=== PATIENT | female | born 1960 | race African-American/Black ===

== ENCOUNTER 2017-06-20 22:54 | Emergency (ER) | payer MEDICARE ==
[2017-06-20] MEDS: IPRATRPIUM/ALBUTEROL 0.5/2.5MG 3 ML NEBU. NEB (23:11)
== END 2017-06-21 00:24 | disposition home or self-care (01) ==
LOC: ER 06-21 00:24
DX: J40 Bronchitis, not specified as acute or chronic (principal); I10 Essential (primary) hypertension; F20.9 Schizophrenia, unspecified; F41.9 Anxiety disorder, unspecified
CPT/HCPCS: 71046; 94640; 99284-25; J7620

== ENCOUNTER 2020-02-05 09:48 | Emergency (ER) | payer MEDICARE, OTHER ==
[~2020-02-05] VITALS: Ht 157.5 cm; Wt 140.9 kg
[~2020-02-05 09:48] MED LIST: ACET-704 PO; ALBU1.25 NEB; ALBU2.5V8 IH; ARIP5TAB13 PO; ATEN25TA PO; AZIT250T PO; BUSP5TAB PO; DIVA500T2 PO
--- NOTE | 2020-02-05 09:57 | PHYS DOC ---
Past Medical History Past Medical History: Anxiety, Asthma, Bipolar, Cancer, Hypertension, [place] izophrenia Additional Past Medical Histor: schizophrenia, bipolar Past Surgical History: , Other Additional Past Surgical Histo: left breast tumor removal Smoking Status: Current Every Day Smoker Alcohol Use: Occasionally Drug Use: None General Adult EDM: Chief Complaint: SKIN RASH/ABSCESS HPI: HPI: Patient is a 60 year old female who presents with a 2 to 3-day history of throbbing 7 out of 10 pain in her left middle finger. Patient says she pulled a hangnail about 4 days ago and noticed pain a day or 2 later. Pain is significantly worse with palpation. Patient denies any fevers. Patient also has had a rash on her inner thighs but did not get relieved with cornstarch or Desitin, but has improved with some [id number] vaginal cream. Review of Systems: Review of Systems: Constitutional: Denies fever or chills. [] Eyes: Denies change in visual acuity. [] HENT: Denies nasal congestion or sore throat. [] Respiratory: Denies shortness of breath but has a chronic mild cough Cardiovascular: Denies chest pain or edema. [] GI: Denies abdominal pain, nausea, vomiting, bloody stools or diarrhea. [] : Denies dysuria. [] Musculoskeletal: Denies back pain or joint pain. [] Integument: Complains of rash to inner thighs Neurologic: Denies headache, focal weakness or sensory changes. [] Endocrine: Denies polyuria or polydipsia. [] Lymphatic: Denies swollen glands. [] Psychiatric: Denies depression or anxiety. [] Heart Score: Risk Factors: Risk Factors: DM, Current or recent (<one month) smoker, HTN, HLP, family history of CAD, obesity. Risk Scores: Score 0 - 3: 2.5% MACE over next 6 weeks - Discharge Home Score 4 - 6: 20.3% MACE over next 6 weeks - Admit for Clinical Observation Score 7 - 10: 72.7% MACE over next 6 weeks - Early Invasive Strategies Allergies: Allergies: Allergies Coded Allergies Type Severity Reaction Last Updated Verified iodine Allergy Intermediate loss of vision 08/27/14 No risperidone Allergy Mild rash 08/27/14 No Physical Exam: PE: Constitutional: Well developed, well nourished, no acute distress, non-toxic appearance. [] HENT: Normocephalic, atraumatic, bilateral external ears normal, no trismus, nose normal. [] Eyes: PERRLA, EOMI, conjunctiva normal, no discharge. [] Neck: Normal range of motion, no tenderness, supple, no stridor. [] Cardiovascular:Heart rate regular rhythm, peripheral pulses intact Lungs & Thorax: Bilateral breath sounds clear no respiratory distress Abdomen: Nondistended Skin: Healing rash to inner thighs (floral designer salesperson present), rash consistent with candidal infection. Mild erythema to the left middle finger Back: No tenderness, no CVA tenderness. [] Extremities: Tenderness and swelling to the left middle finger most probably on the radial side mild surrounding erythema, mild fluctuance to the radial side Neurologic: Alert and oriented X 3, normal motor function, normal sensory function, no focal deficits noted. [] Psychologic: Affect normal, judgement normal, mood normal. [] Current Patient Data: Vital Signs: Vital Signs Date Time Temp Pulse Resp B/P (MAP) Pulse Ox O2 Delivery O2 Flow Rate FiO2 02/05/20 09:59 98.4 116 22 169/105 (126) 95 Room Air 98.4 EKG: EKG: [] Radiology/Procedures: Radiology/Procedures: [] Course & Med Decision Making: Course & Med Decision Making Pertinent Labs and Imaging studies reviewed. (See chart for details) [] Procedure note: After informed consent was obtained a digital block with performed by me. The skin was prepped on the left third finger and alcohol prep. 27-gauge needle was used to inject 3 cc of 1% lidocaine via dorsal approach. Patient achieved good anesthesia. No complications. The fingernail was then prepped with an alcohol wipe. I tried to lift the nail but there is no purulent return. Then over the radial side of the finger around the area with the most fluctuance a stab incision was made and moderate amount of pus was expressed along with blood. Patient did wash the hand with soap and water and irrigated the wound. No complications. 6-year-old female presents with a paronychia which was drained in the ER. Patient feels much better after the pressures been relieved on her finger. Patient placed on antibiotics. The rash on her legs most likely candidal infection and she was instructed continue with the cream she is on. Dragon Disclaimer: Dragon Disclaimer: This electronic medical record was generated, in whole or in part, using a voice recognition dictation system. Departure Departure Impression: Primary Impression: Paronychia of left middle finger Disposition: 01 HOME, SELF-CARE Condition: STABLE Referrals: NO PCP (PCP) pcp 2-3 days Patient Instructions: Paronychia Additional Instructions: EMERGENCY DEPARTMENT GENERAL DISCHARGE INSTRUCTIONS THANK YOU for coming to [facility] Emergency Department (ED) today and trusting us with your care. We trust that you had a positive experience in our Emergency Department. If you wish to speak to the department Management you can contact the housekeeping department worker at . YOUR FOLLOW UP INSTRUCTIONS ARE FOLLOWS: Do you have a private doctor? If you do not have a private doctor, please ask for a resource list of physicians or clinics that may be able to assist you with follow up care. The Emergency Physician has interpreted your x-rays. The X-ray specialist will also review them. If there is a change in the findings you will be notified in 48 hours when at all possible. A lab test or lab culture may have been done, your results will be reviewed and you will be notified if you need a change in treatment. ADDITIONAL INSTRUCTIONS AND INFORMATION Your care today has been supervised by a physician who is specially trained in emergency care. Many problems require more than one evaluation for a complete diagnosis and treatment. We recommend that you schedule your follow up appointment as recommended to ensure complete treatment of your illness or injury. If you are unable to obtain follow up care and continue to have a problem, or if your condition worsens we recommend that you return to the ED. We are not able to safely determine your condition over the phone nor are we able to give sound medical advice over the phone. For these safety reasons, if you call for medical advice we will ask you to come to the ED for further evaluation If you have any questions regarding these discharge instructions please call the ED at . SAFETY INFORMATION In the interest of safety, wellness, and injury prevention; we encourage you to wear your seatbelt, if you smoke; quit smoking, and we encourage your family to use protective helmet for bicycling and other sporting events that present an increased risk for head injury. IF YOUR SYMPTOMS WORSEN OR NEW SYMPTOMS DEVELOP, OR YOU HAVE CONCERNS ABOUT YOUR CONDITION; OR IF YOUR CONDITION WORSENS WHILE YOU ARE WAITING FOR YOUR FOLLOW UP APPOINTMENT; EITHER CONTACT YOUR PRIMARY CARE DOCTOR, THE PHYSICIAN WHOSE NAME AND NUMBER YOU WERE GIVEN, OR RETURN TO THE ED IMMEDIATELY. Scripts Hydrocodone/Apap 5-325 (NORCO 5-325 TABLET) 1 Each Tablet 1-2 EACH PO PRN Q6HRS PRN for PAIN, #12 as needed for pain Prov: LURDES HEART MD 02/05/20 Sulfamethoxazole/Trimethoprim (BACTRIM 400-80 MG TABLET) 1 Each Tablet 1 TAB PO BID for 7 Days, #20 TAB 0 Refills Prov: LURDES HEART MD 02/05/20 Justicifation of Admission Dx: Justifications for Admission: Justification of Admission Dx: N/A LURDES HEART MD Feb 05, 2020 09:57
[2020-02-05] MEDS ORDERED: LIDOCAINE 1% Multi-Dose 20 ML VIAL. INJ ONE (10:30)
[2020-02-05] MEDS ORDERED: SULF1TAB23 PO (10:47)
[2020-02-05] MEDS ORDERED: HYDR-3164 PO (10:47)
[2020-02-05 11:10] VITALS: BP 157/100
== END 2020-02-05 11:16 | disposition home or self-care (01) ==
LOC: ER 09:48
DX: L03.012 Cellulitis of left finger (principal); R05 Cough; R21 Rash and other nonspecific skin eruption; F41.9 Anxiety disorder, unspecified; J45.909 Unspecified asthma, uncomplicated; F31.9 Bipolar disorder, unspecified; F20.9 Schizophrenia, unspecified; I10 Essential (primary) hypertension; F17.200 Nicotine dependence, unspecified, uncomplicated; Z98.890 Other specified postprocedural states
CPT/HCPCS: 10060; 99283; J3490

== ENCOUNTER 2020-02-13 13:40 | Emergency (ER) | payer MEDICARE, OTHER ==
[~2020-02-13] VITALS: Ht 157.5 cm; Wt 141.0 kg
[~2020-02-13 13:40] MED LIST changes: +HYDR-3164 PO; +SULF1TAB23 PO
[2020-02-13 14:00] VITALS: BP 196/89
[2020-02-13] MEDS ORDERED: LIDOCAINE 1% Multi-Dose 20 ML VIAL. INJ ONE (14:15)
[2020-02-13] MEDS ORDERED: BACI1PAC4 TP (14:32)
[2020-02-13] MEDS ORDERED: CEPH-264 PO (14:32)
--- NOTE | 2020-02-13 14:35 | PHYS DOC ---
Past Medical History Past Medical History: Anxiety, Asthma, Bipolar, Cancer, Hypertension, [place] izophrenia Additional Past Medical Histor: schizophrenia, bipolar Past Surgical History: , Other Additional Past Surgical Histo: left breast tumor removal Smoking Status: Former Smoker Alcohol Use: Occasionally Drug Use: None General Adult EDM: Chief Complaint: FINGER INJURY HPI: HPI: Patient is a 60 year old female who presents with right middle finger tip swelling since Friday. She states it is reddened and inflamed. She states she had the same thing on the other hand and it had to be opened and drained. Patient can make a full fist and bend at all finger joints. Patient's right middle finger has 2+ swelling and redness. There is tenderness with palpation to the finger. Cap refill less than 2 seconds. Radial pulse strong present. Patient denies numbness or tingling, fever, nausea, vomiting, body aches, chills, chest pain, shortness of air, focal weakness. Patient has a history of , anxiety, asthma, bipolar, cancer, schizophrenia, hypertension. Patient was seen here on February 04 for a left middle finger paronychia and was given Bactrim antibiotic for 7 days. She states that she has 4 pills left. Review of Systems: Review of Systems: Constitutional: Denies fever or chills. [] Eyes: Denies change in visual acuity. [] HENT: Denies nasal congestion or sore throat. [] Respiratory: Denies cough or shortness of breath. [] Cardiovascular: Denies chest pain. Right middle finger 2+ edema. [] GI: Denies abdominal pain, nausea, vomiting, bloody stools or diarrhea. [] : Denies dysuria. [] Musculoskeletal: Denies back pain or joint pain. Right middle finger[] Integument: Denies rash. Right middle finger redness [] Neurologic: Denies headache, focal weakness or sensory changes. [] Endocrine: Denies polyuria or polydipsia. [] Lymphatic: Denies swollen glands. [] Psychiatric: Denies depression or anxiety. [] Heart Score: Risk Factors: Risk Factors: DM, Current or recent (<one month) smoker, HTN, HLP, family history of CAD, obesity. Risk Scores: Score 0 - 3: 2.5% MACE over next 6 weeks - Discharge Home Score 4 - 6: 20.3% MACE over next 6 weeks - Admit for Clinical Observation Score 7 - 10: 72.7% MACE over next 6 weeks - Early Invasive Strategies Current Medications: Current Medications Medications (Trade) Dose Ordered Sig/[place] Start Time Stop Time Status Last Admin Dose Admin Lidocaine HCl (Lidocaine 1% 20ml Vial) 20 ml 1X ONCE 02/13/20 14:15 02/13/20 14:16 UNV Allergies: Allergies: Allergies Coded Allergies Type Severity Reaction Last Updated Verified iodine Allergy Intermediate loss of vision 08/27/14 No risperidone Allergy Intermediate rash 02/05/20 No Physical Exam: PE: Constitutional: Well developed, well nourished, no acute distress, non-toxic appearance. [] HENT: Normocephalic, atraumatic, bilateral external ears normal, oropharynx moist, no oral exudates, nose normal. [] Eyes: PERRLA, EOMI, conjunctiva normal, no discharge. [] Neck: Normal range of motion, no tenderness, supple, no stridor. [] Cardiovascular:Heart rate regular rhythm, no murmur [] Lungs & Thorax: Bilateral breath sounds clear to auscultation [] Abdomen: Bowel sounds normal, soft, no tenderness, no masses, no pulsatile masses. [] Skin: Warm, dry, Right middle finger erythema, no rash. [] Back: No tenderness, no CVA tenderness. [] Extremities: Right middle finger tenderness, no cyanosis, no clubbing, ROM intact, 2+ edema. [] Neurologic: Alert and oriented X 3, normal motor function, normal sensory function, no focal deficits noted. [] Psychologic: Affect normal, judgement normal, mood normal. [] Current Patient Data: Vital Signs: Vital Signs Date Time Temp Pulse Resp B/P (MAP) Pulse Ox O2 Delivery O2 Flow Rate FiO2 02/13/20 14:00 98.8 102 15 196/89 (124) 96 Room Air 98.8 EKG: EKG: [] Radiology/Procedures: Radiology/Procedures: [] Course & Med Decision Making: Course & Med Decision Making Pertinent Labs and Imaging studies reviewed. (See chart for details) See HPI. Patient is placed on Keflex for 10 days in stead of Bactrim. I also ordered bacitracin ointment to be placed over the area. Patient is to return in 48 hours or sooner if symptoms worsen. I&D Location: Right middle finger tip Anesthesia: 1% lidocaine Scalpel size: #11, 2mm cut made to medial finger tip Skin: Reddened, purulent drainage Drainage: Purulent Packing: None Patient tolerated the procedure well with no complications. The area was prepped and draped in usual sterile fashion. Area was cleaned with chloehexidine prior to procedure. Return for signs and symptoms of infection education given. Patient to return in 48 hours for wound recheck. [] Dragon Disclaimer: Dragon Disclaimer: This electronic medical record was generated, in whole or in part, using a voice recognition dictation system. Departure Departure Impression: Primary Impression: Paronychia of finger Qualified Codes: L03.011 - Cellulitis of right finger Disposition: HOME, SELF-CARE Condition: STABLE Referrals: GYPSY JAMES MD (PCP) Patient Instructions: Paronychia Additional Instructions: Follow up with your primary care physician. Take medication as prescribed and with food. If your symptoms worsen or you begin running a fever or have severe pain return back to the emergency room. Scripts Bacitracin (BACITRACIN) 1 Each Packet 1 PACKET TP BID for 14 Days, #28 PACKET 0 Refills Prov: JOSEPH GILMAN APRN 02/13/20 Cephalexin (KEFLEX) 500 Mg Capsule 500 MG PO QID for 10 Days, #40 CAP Prov: JOSEPH GILMAN APRN 02/13/20 Justicifation of Admission Dx: Justifications for Admission: Justification of Admission Dx: N/A JOSEPH GILMAN APRN Feb 13, 2020 14:35
== END 2020-02-13 15:10 | disposition home or self-care (01) ==
LOC: ER 13:40
DX: L03.011 Cellulitis of right finger (principal); R60.0 Localized edema; F41.9 Anxiety disorder, unspecified; J45.909 Unspecified asthma, uncomplicated; F31.9 Bipolar disorder, unspecified; I10 Essential (primary) hypertension; F20.9 Schizophrenia, unspecified; Z98.890 Other specified postprocedural states; Z87.891 Personal history of nicotine dependence
CPT/HCPCS: 10060; 99283

== ENCOUNTER 2021-05-18 11:30 | Emergency (ER) | payer MEDICARE, OTHER ==
[~2021-05-18] VITALS: Ht 167.6 cm; Wt 142.2 kg
[~2021-05-18 11:30] MED LIST changes: +BACI1PAC4 TP; +CEPH-264 PO
[2021-05-18] MEDS ORDERED: methylPREDNISolone SOD SUCC PF 125 MG/2 ML VIAL. IV ONE (13:15)
[2021-05-18] MEDS ORDERED: IPRATRPIUM/ALBUTEROL 0.5/2.5MG 3 ML NEBU. NEB ONE (13:15)
--- NOTE | 2021-05-18 13:25 | PHYS DOC ---
Past Medical History Past Medical History: Anxiety, Asthma, Bipolar, Cancer, Hypertension, [place] izophrenia Additional Past Medical Histor: schizophrenia, bipolar (KERWIN AVILA APRN) Past Surgical History: , Other Additional Past Surgical Histo: left breast tumor removal (KERWIN AVILA APRN) Smoking Status: Former Smoker Alcohol Use: Occasionally Drug Use: None (KERWIN AVILA APRN) General Adult EDM: Chief Complaint: MULTIPLE COMPLAINTS HPI: HPI: Patient is a 61-year-old female who presents to the emergency department for a nonproductive cough and shortness of breath that started 2 weeks ago. Patient reports that she has a history of asthma she takes inhalers and breathing treatments at home. She also has a history of hypertension and states that she has been taking her medications as directed but takes her blood pressure medication at night. Patient is also reporting a rash to her groin. Patient reports that she has a history of incontinence when she coughs and has developed a rash to her groin that is itchy. Patient denies any fevers, chest pain, sick exposures, nausea, vomiting, abdominal pain, dizziness, vaginal discharge, vaginal pain. (KERWIN AVILA APRN) Review of Systems: Review of Systems: 14 body systems of the review of systems have been reviewed. See HPI for pertinent positive and negative responses, otherwise all other systems are negative, nonpertinent or noncontributory (KERWIN AVILA APRN) Heart Score: C/O Chest Pain: No Risk Factors: Risk Factors: DM, Current or recent (<one month) smoker, HTN, HLP, family history of CAD, obesity. Risk Scores: Score 0 - 3: 2.5% MACE over next 6 weeks - Discharge Home Score 4 - 6: 20.3% MACE over next 6 weeks - Admit for Clinical Observation Score 7 - 10: 72.7% MACE over next 6 weeks - Early Invasive Strategies (KERWIN AVILA APRN) Current Medications: Current Medications Medications (Trade) Dose Ordered Sig/[place] Start Time Stop Time Status Last Admin Dose Admin Albuterol/ Ipratropium (Duoneb) 3 ml 1X ONCE 05/18/21 13:15 05/18/21 13:16 UNV Methylprednisolone Sodium Succinate (SOLU-Medrol 125MG VIAL) 125 mg 1X ONCE 05/18/21 13:15 05/18/21 13:16 UNV (KERWIN AVILA APRN) Allergies: Allergies: Allergies Coded Allergies Type Severity Reaction Last Updated Verified iodine Allergy Intermediate loss of vision 05/18/21 No risperidone Allergy Intermediate rash 05/18/21 No (KERWIN AVILA APRN) Physical Exam: PE: Constitutional: Well developed, well nourished, no acute distress, non-toxic appearance. [] HENT: Normocephalic, atraumatic, bilateral external ears normal, oropharynx moist, no oral exudates, nose normal. [] Eyes: PERRL, EOMI, conjunctiva normal, no discharge. [] Neck: Normal range of motion, no tenderness, supple, no stridor. [] Cardiovascular:Heart rate regular rhythm, no murmur [] Lungs & Thorax: Scattered wheezing noted throughout Abdomen: Bowel sounds normal, soft, no tenderness, no masses, obese, no pulsatile masses. [] Skin: Warm, dry, no erythema, no rash. [] Solderer Assembly Repair: patient has discolored rash with white thick draingae consisted with candidiasis in the folds of her groin and under her panus Back: Normal range of motion Extremities: No tenderness, no cyanosis, no clubbing, ROM intact, no edema. [] Neurologic: Alert and oriented X 3, normal motor function, normal sensory function, no focal deficits noted. [] Psychologic: Affect normal, judgement normal, mood normal. [] (KERWIN AVILA APRN) Current Patient Data: Labs: Laboratory Tests Test 05/18/21 14:15 05/18/21 14:40 05/18/21 15:05 White Blood Count 7.2 x10^3/uL Red Blood Count 4.16 x10^6/uL Hemoglobin 11.9 g/dL Hematocrit 36.1 % Mean Corpuscular Volume 87 fL Mean Corpuscular Hemoglobin 29 pg Mean Corpuscular Hemoglobin Concent 33 g/dL Red Cell Distribution Width 15.0 % Platelet Count 239 x10^3/uL Neutrophils (%) (Auto) 58 % Lymphocytes (%) (Auto) 33 % Monocytes (%) (Auto) 6 % Eosinophils (%) (Auto) 3 % Basophils (%) (Auto) 1 % Neutrophils # (Auto) 4.2 x10^3/uL Lymphocytes # (Auto) 2.3 x10^3/uL Monocytes # (Auto) 0.4 x10^3/uL Eosinophils # (Auto) 0.2 x10^3/uL Basophils # (Auto) 0.1 x10^3/uL Influenza Type A Antigen Negative Influenza Type B Antigen Negative Sodium Level 139 mmol/L Potassium Level 4.2 mmol/L Chloride Level 101 mmol/L Carbon Dioxide Level 29 mmol/L Anion Gap 9 Blood Urea Nitrogen 10 mg/dL Creatinine 0.9 mg/dL Estimated GFR (Cockcroft-Gault) 77.0 BUN/Creatinine Ratio 11 Glucose Level 300 mg/dL Calcium Level 8.8 mg/dL Total Bilirubin 0.3 mg/dL Aspartate Amino Transf (AST/SGOT) 18 U/L Alanine Aminotransferase (ALT/SGPT) 26 U/L Alkaline Phosphatase 105 U/L Troponin I High Sensitivity 6 ng/L Total Protein 6.7 g/dL Albumin 3.2 g/dL Albumin/Globulin Ratio 0.9 Current Medications Medications (Trade) Dose Ordered Sig/[place] Route PRN Reason Start Time Stop Time Status Last Admin Dose Admin Albuterol/ Ipratropium (Duoneb) 3 ml 1X ONCE NEB 05/18/21 13:15 05/18/21 13:21 DC 05/18/21 13:24 Methylprednisolone Sodium Succinate (SOLU-Medrol 125MG VIAL) 125 mg 1X ONCE IV 05/18/21 13:15 05/18/21 13:21 DC 05/18/21 14:26 (EKRWIN AVILA TAPPER HAND) EKG: EKG: EKG performed by ER staff at 1326 shows sinus rhythm with a rate of 94, no STEMI read by Dr. Paez at 1328 [] (KERWIN AVILA TAPPER HAND) Radiology/Procedures: Radiology/Procedures: []PROCEDURE: PORTABLE CHEST 1V EXAMINATION: Chest radiograph. VIEWS: Single AP view of the chest COMPARISON: 06/20/2017 INDICATION:61 years, Female, shortness of breath, cough. FINDINGS: Lungs are hypoinflated. Cardiac silhouette is within normal limits. [And bibasilar opacities, left greater than right. No pleural effusion or pneumothorax. No acute osseous process. IMPRESSION: Poor inspiratory effort with left mid and bibasilar opacities may represent atelectasis or multifocal infection Electronically signed by: Faustina Dudley DO (05/18/2021 1:55 PM) [id number] DICTATED and SIGNED BY: FAUSTINA DUDLEY DATE: 05/18/21 [id number] (KERWIN AVILA APRN) Course & Med Decision Making: Course & Med Decision Making Pertinent Labs and Imaging studies reviewed. (See chart for details) Patient presents to the emergency department for a nonproductive cough and shortness of breath that started 2 weeks ago. Patient has a history of asthma. Patient was not hypoxic although she was tachycardic and mildly hypertensive in the ER. Patient was noted to have wheezing throughout and therefore was treated with a breathing treatment and steroids. Work-up in the ER consisted of blood work, chest x-ray and EKG. Patient is also reporting a itchy rash to her groin. Upon physical assessment, it appears that patient is having a candidiasis rash. She will be discharged home with an antifungal cream. Patient CBC is unremarkable, negative influenza testing, no elevated troponin, patient CMP was unremarkable her blood sugar was 300. She was given IV fluids. Her vital signs remained stable and she is not hypoxic, heart rate wnl. Following the breathing treatment, patient reports that her symptoms have improved and her wheezing has improved. Patient will be discharged home with an antibiotic to treat the pneumonia that was seen on the chest x-ray, given first dose in the ER. She was also discharged home with steroids for asthma exacerbation. She will be discharged home with an antifungal cream to treat the candidiasis. I discussed with patient all findings and diagnostic testing as well as the need to follow-up with PCP for further evaluation and treatment or return to the ER if any new or worsening symptoms. Strict return precautions we re also discussed at length. Patient voiced understanding and agreement with the plan. Patient is hemodynamically stable at the time of disposition. (KERWIN AVILA APRN) Course & Med Decision Making Attending addendum: I reviewed the chart as above. I was not involved in the patient's care while in the emergency department. In addition to the above I sent a prescription for Augmentin given her pre- existing lung disease. So she will take Augmentin and azithromycin. I left a message on her phone asking her to picket labor union both prescriptions at the pharmacy. (KATHY PAEZ MD) Dragon Disclaimer: Dragon Disclaimer: This electronic medical record was generated, in whole or in part, using a voice recognition dictation system. (KERWIN AVILA APRN) Departure Departure Impression: Primary Impression: Pneumonia Qualified Codes: J18.9 - Pneumonia, unspecified organism Disposition: HOME / SELF CARE / HOMELESS Condition: GOOD Referrals: GYPSY JAMES MD (PCP) Patient Instructions: Pneumonia, Adult Additional Instructions: You were seen in the emergency department today for shortness of breath and a cough. Your influenza test was negative. Your blood work was unremarkable. Your chest x-ray did show pneumonia. This will be treated with an antibiotic. Please start and finish the antibiotic completely. You were tested in the emergency department today for COVID-19, you will be notified of your results in approximately 2 days when it becomes available, please self isolate until you receive these results. Please continue taking your inhalers and breathing treatments at home for your asthma. For the rash to your groin, please use the nystatin powder as directed. You are also being discharged home with a steroid, use this as directed. Please follow-up with your primary care provider tomorrow regarding your ER visit. Please make sure that you are taking your medications as directed at home for hypertension. Please return to the emergency department if you develop worsening of your shortness of breath, chest pain, high fevers refractory to treatment, intractable nausea or vomiting. Scripts Amoxicillin/Potassium Clav (AUGMENTIN 875-125 TABLET) 1 Each Tablet 1 TAB PO BID for 7 Days, #14 TAB 0 Refills Prov: KATHY PAEZ MD 05/18/21 Prednisone (PREDNISONE) 20 Mg Tablet 2 TAB PO DAILY for 5 Days, #10 TAB 0 Refills Prov: KERWIN AVILA APRN 05/18/21 Azithromycin (AZITHROMYCIN TABLET) 250 Mg Tablet 250 MG PO DAILY for ANTI-BIOTIC for 4 Days, #4 TAB 0 Refills Prov: KERWIN AVILA APRN 05/18/21 Nystatin (NYSTATIN) 15 Gm Powder 1 DEZ TP BID for 7 Days, #1 BOTTLE 0 Refills apply to affected area(s) Prov: KERWIN AVILA APRN 05/18/21 KERWIN AVILA APRN May 18, 2021 13:25 KATHY PAEZ MD May 18, 2021 18:00
--- NOTE | 2021-05-18 13:57 | RAD ---
EXAMINATION: Chest radiograph. VIEWS: Single AP view of the chest COMPARISON: 06/20/2017 INDICATION:61 years, Female, shortness of breath, cough. FINDINGS: Lungs are hypoinflated. Cardiac silhouette is within normal limits. [And bibasilar opacities, left gr eater than right. No pleural effusion or pneumothorax. No acute osseous process. IMPRESSION: Poor inspiratory effort with left mid and bibasilar opacities may represent atelectasis or multifocal infection Electronically signed by: Shaun Dudley DO (05/18/2021 1:55 PM) [id number]
[2021-05-18 14:47] LABS: BASO # 0.1 x10^3/uL (0.0-0.2); BASO % 1 % (0-3); EOS # 0.2 x10^3/uL (0.0-0.7); EOS % 3 % (0-3); HEMATOCRIT 36.1 % (36.0-47.0); HEMOGLOBIN 11.9 g/dL (12.0-15.5); LYMPH # 2.3 x10^3/uL (1.0-4.8); LYMPH % 33 % (24-48); MEAN CORPUSCULAR HEMOGLOBIN 29 pg (25-35); MEAN CORPUSCULAR HGB CONC 33 g/dL (31-37); MEAN CORPUSCULAR VOLUME 87 fL (79-100); MONO # 0.4 x10^3/uL (0.0-1.1); MONO % 6 % (0-9); NEUT # 4.2 x10^3/uL (1.8-7.7); NEUT % 58 % (31-73); PLATELET COUNT 239 x10^3/uL (140-400); RED BLOOD COUNT 4.16 x10^6/uL (3.50-5.40); WHITE BLOOD COUNT 7.2 x10^3/uL (4.0-11.0)
[2021-05-18 15:06] LABS: INFLUENZA A PATIENT NEGATIVE (NEGATIVE); INFLUENZA B PATIENT NEGATIVE (NEGATIVE)
[2021-05-18 15:37] LABS: ALBUMIN 3.2 g/dL (3.4-5.0); ALBUMIN/GLOBULIN RATIO 0.9 (1.0-1.7); CALCIUM 8.8 mg/dL (8.5-10.1); CREATININE 0.9 mg/dL (0.6-1.0); POTASSIUM 4.2 mmol/L (3.5-5.1); TOTAL BILIRUBIN 0.3 mg/dL (0.2-1.0); TOTAL PROTEIN 6.7 g/dL (6.4-8.2)
[2021-05-18] MEDS ORDERED: AZITHROMYCIN 250 MG TABLET. PO ONE (15:45)
[2021-05-18] MEDS ORDERED: IV NORMAL SALINE 1000ML BAG 1,000 ML IV ONE (15:45)
[2021-05-18] MEDS ORDERED: NYST15PO9 TP (15:58)
[2021-05-18] MEDS ORDERED: AZIT250T6 PO (15:58)
[2021-05-18] MEDS ORDERED: PRED20TA PO (15:58)
[2021-05-18 17:09] VITALS: BP 171/82
[2021-05-18] MEDS ORDERED: AMOX1TAB61 PO (18:00)
--- NOTE | 2021-05-19 04:22 | EKG ---
[facility] [address] [place] [address] Test Date: 2021-05-18 Test Time: 13:26:01 Pat Name: CARLTON MCGUIRE Department: Room: Gender: F Funeral Location Manager: : 1960 Requested By: KERWIN AVILA Order Number: [id number] Reading MD: Jose Wen MD Measurements Intervals [place] Rate: 94 P: -62 DE: 144 QRS: -1 QRSD: 72 T: 42 QT: 400 QTc: 500 Interpretive Statements SINUS RHYTHM NON-SPECIFIC ST/T CHANGES Electronically Signed On 05-20-2021 20:46:09 SUPERVISORY INVESTIGATIVE SPECIALIST by Jose Wen MD
--- NOTE | 2021-05-21 13:18 | NUR ---
IP: Informed pt of negative covid test. Pt verbalized understanding.
== END 2021-05-18 17:12 | disposition home or self-care (01) ==
LOC: ER 11:30
DX: J18.9 Pneumonia, unspecified organism (principal); Z20.822 Contact with and (suspected) exposure to COVID-19; J45.909 Unspecified asthma, uncomplicated; F31.9 Bipolar disorder, unspecified; I10 Essential (primary) hypertension; F20.9 Schizophrenia, unspecified; Z87.891 Personal history of nicotine dependence; Z88.8 Allergy status to other drugs, medicaments and biological substances
CPT/HCPCS: 36415; 71045; 80053; 84484; 85025; 87804; 93005; 94640; 96361; 96374; 99284; J2930; J7030; U0003; U0005

== ENCOUNTER → 2021-07-01 22:28 | Emergency (ER) | payer MEDICARE, OTHER ==
[~2021-07-01] VITALS: Ht 157.5 cm; Wt 137.7 kg
[~2021-07-01 22:28] MED LIST changes: +AMOX1TAB61 PO; +AZIT250T6 PO; +IBUPROFEN 200 MG TABLET. PO ONE; +NYST15PO9 TP; +PRED20TA PO
--- NOTE | 2021-07-01 23:15 | PHYS DOC ---
Past Medical History Past Medical History: Anxiety, Asthma, Bipolar, Cancer, Hypertension, [place] izophrenia Additional Past Medical Histor: schizophrenia, bipolar (HÉCTOR PORTILLO PASTOR) Past Surgical History: No Surgical History Additional Past Surgical Histo: left breast tumor removal (HÉCTOR PORTILLO APRN) Smoking Status: Current Every Day Smoker Alcohol Use: Occasionally Drug Use: None (HÉCTOR PORTILLO APRN) General Adult EDM: Chief Complaint: MECHANICAL FALL HPI: HPI: Patient is a 61-year-old female that presents today after a fall on Friday. Patient states she was walking at [facility] at around 8:30 in the evening and she said she did not see a bench and she fell forward over the bench landing on her face. She denies a loss of consciousness, but does complain of bilateral knee pain, left lumbar pain, right rib pain, and right sided neck pain. Patient states she was unable to get here until today due to transportation issues. She said she took Tylenol yesterday for the pain but otherwise has not taken anything today. (HÉCTOR PORTILLO PASTOR) Review of Systems: Review of Systems: Constitutional: Denies fever or chills. [] Eyes: Denies change in visual acuity. [] HENT: Denies nasal congestion or sore throat. [] Respiratory: Denies cough or shortness of breath. [] Cardiovascular: Denies chest pain or edema. [] GI: Denies abdominal pain, nausea, vomiting, bloody stools or diarrhea. [] : Denies dysuria. [] Musculoskeletal: Bilateral knee pain, right lumbar pain, left rib pain and right-sided neck pain Integument: Denies rash. [] Neurologic: Denies headache, focal weakness or sensory changes. [] Endocrine: Denies polyuria or polydipsia. [] Lymphatic: Denies swollen glands. [] Psychiatric: Denies depression or anxiety. [] (HÉCTOR PORTILLO PASTOR) Heart Score: C/O Chest Pain: N/A Risk Factors: Risk Factors: DM, Current or recent (<one month) smoker, HTN, HLP, family history of CAD, obesity. Risk Scores: Score 0 - 3: 2.5% MACE over next 6 weeks - Discharge Home Score 4 - 6: 20.3% MACE over next 6 weeks - Admit for Clinical Observation Score 7 - 10: 72.7% MACE over next 6 weeks - Early Invasive Strategies (HÉCTOR PORTILLO APRN) Allergies: Allergies: Allergies Coded Allergies Type Severity Reaction Last Updated Verified iodine Allergy Intermediate loss of vision 05/18/21 No risperidone Allergy Intermediate rash 05/18/21 No (HÉCTOR PORTILLO APRN) Physical Exam: PE: Constitutional: Well developed, obese, no acute distress, non-toxic appearance. [] HENT: Normocephalic, atraumatic, bilateral external ears normal, oropharynx moist, no oral exudates, nose normal. [] Eyes: PERRLA, EOMI, conjunctiva normal, no discharge. [] Neck: Normal range of motion, right-sided neck tenderness with deep palpation, no midline tenderness noted] Cardiovascular:Heart rate regular rhythm, no murmur [] Lungs & Thorax: Bilateral breath sounds clear to auscultation, tenderness and okay to on the mid axilla line with deep palpation no ecchymosis, or contusion noted. Abdomen: Bowel sounds normal, soft, no tenderness, no masses, no pulsatile masses. [] Skin: Warm, dry, no erythema, no rash. [] Back: Tenderness with deep palpation noted over the right SI joint, mostly musculoskeletal patient has good range of motion of the right hip. Extremities: Bilateral knee pain over the kneecap area, no contusions, lacerations, abrasions, or ecchymosis noted. Patient has normal range of motion but is painful, dorsalis pedis is 2+ with neurovascular intact distal to the injury bilaterally Neurologic: Alert and oriented X 3, normal motor function, normal sensory function, no focal deficits noted. [] Psychologic: Affect normal, judgement normal, mood normal. [] (HÉCTOR PORTILLO APRN) Current Patient Data: Vital Signs: Vital Signs Date Time Temp Pulse Resp B/P (MAP) Pulse Ox O2 Delivery O2 Flow Rate FiO2 07/01/21 23:00 98.2 111 17 175/79 (111) 97 Room Air 98.2 (HÉCTOR PORTILLO APRN) EKG: EKG: [] (HÉCTOR PORTILLO APRN) Radiology/Procedures: Radiology/Procedures: REASON: fall PROCEDURE: CT HEAD AND CERVICAL SPINE WO CT HEAD AND C-SPINE WO dated 07/01/2021 11:25 PM. Comparison: None. Clinical Indication: Reason: fall / Spl. Instructions: / History: , HEAD AND NECK PAIN Technical factors: Contiguous 5 mm axial images of the head were obtained from the skullbase to the vertex. No contrast was administered. In addition, 3 mm axial images of the cervical spine were acquired with thin cut coronal and sagittal reconstructions. One or more of the following individualized dose reduction techniques were utilized for this examination: 1. Automated exposure control 2. Adjustment of the mA and/or kV according to patient size 3. Use of iterative reconstruction technique Findings head: Ventricles and sulci are within normal limits for age. No evidence of ventricular shift or mass effect. Brain parenchyma is of normal attenuation. There is no evidence of hemorrhage or extra-axial collection. Visualized paranasal sinuses and mastoid air cells are clear. No acute osseous abnormality. IMPRESSION HEAD: No evidence of acute intracranial abnormality. Findings cervical spine: Images were acquired from the skull base to T3. There is straightening of the normal cervical lordosis, otherwise sagittal alignment is anatomic. Vertebral body heights are maintained. No prevertebral soft tissue swelling. Posterior elements are intact. No fractures are identified. Mild to moderate endplate hypertrophic changes with multilevel uncovertebral spurring and mild multilevel facet arthropathy. No apparent focal disc herniation. The bony canal and foramen are adequate. Visualized soft tissue structures are unremarkable. Limited images of lung apices are clear. Mild emphysema. IMPRESSION CERVICAL SPINE: 1. No evidence of fracture or malalignment. 2. Mild multilevel spondylosis. Electronically signed by: Estevan Marinelli MD (07/02/2021 12:13 AM) EDILMA REASON: fall PROCEDURE: CT LUMBAR SPINE WO CONTRAST CT lumbar spine without contrast dated 07/02/2021. COMPARISON: None. CLINICAL INDICATION: Pain after fall. TECHNIQUE: Contiguous axial imaging of the lumbar spine performed with thin cut coronal and sagittal reconstruction. One or more of the following individualized dose reduction techniques were utilized for this examination: 1. Automated exposure control 2. Adjustment of the mA and/or kV according to patient size 3. Use of iterative reconstruction technique FINDINGS: Sagittal alignment is anatomic. Vertebral body heights are maintained. No displaced fracture. There is a unilateral pars defect at L5 right with small linear defect through the spinous process and left lamina that appears well- corticated, likely remote. There is also some fragmentation along the posterior margin left facet joint at this level. No apparent focal disc herniation. There is mild broad-based bulging at L4-L5 with mild disc space narrowing. This results in mild central stenosis with moderate bilateral foraminal stenosis. There is moderate disc space narrowing and vacuum disc phenomenon at L5-S1 with mild broad-based bulge. Moderate bi lateral foraminal stenosis with moderate narrowing of the thecal sac. Images of the retroperitoneum show no significant abnormality. IMPRESSION: 1. No evidence of acute fracture or malalignment. 2. Unilateral pars defect at L5 on the right with small linear defect through the left lamina/spinous process that appears to be remote in age. No significant listhesis at this level. 3. Mild to moderate lower lumbar spondylosis. There is mild central stenosis at L4-L5 and L5-S1 with moderate bilateral foraminal narrowing at these levels. Electronically signed by: Estevan Marinelli MD (07/02/2021 12:22 AM) [facility]: fall PROCEDURE: CT MAXILLOFACIAL WO CONTRAST CT maxillofacial without contrast dated 07/02/2021. COMPARISON: None. CLINICAL INDICATION: Pain after fall. TECHNIQUE: Contiguous axial imaging the maxillary facial bones obtained with thin cut coronal and sagittal MIPS reconstructions. One or more of the following individualized dose reduction techniques were utilized for this examination: 1. Automated exposure control 2. Adjustment of the mA and/or kV according to patient size 3. Use of iterative reconstruction technique FINDINGS: Mild mucosal thickening of the ethmoid air cells. Paranasal sinuses and mastoid air cells are otherwise clear. Middle ears are clear. No destructive changes or periostitis. Orbital aviles and maxillary aviles are intact. No displaced facial fracture. Zygomatic arches are intact. Nasal bones are intact. No evidence of mandible fracture. Imaged portions of the brain parenchyma unremarkable. No significant soft tissue abnormality. IMPRESSION: 1. No evidence of displaced facial fracture. 2. Minimal mucosal thickening of the bilateral ethmoid air cells. Electronically signed by: Estevan Marinelli MD (07/02/2021 12:25 AM) [facility] (HÉCTOR PORTILLO APRN) Impression: [facility] [address] [place] [address] IMAGING REPORT Signed PATIENT: CARLTON MCGUIRE LACCOUNT: [id number] : 1960 LOCATION: ER AGE: 61 SEX: F EXAM STATUS: DEP ER ORD. PHYSICIAN: HÉCTOR PORTILLO APRN REASON: fall PROCEDURE: HIP RIGHT 2V WITH PELVIS Single view pelvis and two-view right hip dated 07/02/2021. COMPARISON: None. CLINICAL INDICATION: Pain after fall. FINDINGS: AP view pelvis shows normal bony alignment. No displaced fracture. Pelvic ring is intact. No acute osseous or articular abnormality. 2 views right hip show normal bony alignment. No displaced fracture. No acute osseous or articular abnormality. IMPRESSION: No acute findings. Electronically signed by: Estevan Marinelli MD (07/02/2021 2:52 AM) [facility] DICTATED and SIGNED BY: ESTEVAN MARINELLI MD DATE: 07/02/21 [id number] [facility] [address] [place] [address] IMAGING REPORT Signed PATIENT: CARLTON MCGUIRE LACCOUNT: [id number] : 1960 LOCATION: ER AGE: 61 SEX: F EXAM STATUS: DEP ER ORD. PHYSICIAN: HÉCTOR PORTILLO APRN REASON: fall and knee pain PROCEDURE: KNEE BILAT 4V 4 view bilateral knee dated 07/02/2021. COMPARISON: None. Clinical data indication: Pain after fall. FINDINGS: 4 views of right knee show normal bony alignment. No displaced fracture. Mild tricompartmental hypertrophic change with small marginal osteophytes. There is asymmetric medial joint space narrowing. No apparent joint effusion. There are small loose bodies at the posterior joint space. 4 views of the left knee show normal bony alignment. No displaced fracture. Moderate tricompartmental hypertrophic changes with multiple intra-articular loose bodies. No apparent joint effusion. IMPRESSION: 1. No acute radiographic abnormality. 2. Moderate bilateral tricompartmental DJD with multiple intra-articular loose bodies, left greater than right. Electronically signed by: Estevan Marinelli MD (07/02/2021 2:54 AM) [facility] DICTATED and SIGNED BY: ESTEVAN MARINELLI MD DATE: 07/02/21 [id number] [facility] [address] [place] [address] IMAGING REPORT Signed PATIENT: CARLTON MCGUIRE LACCOUNT: [id number] : 1960 LOCATION: ER AGE: 61 SEX: F EXAM STATUS: DEP ER ORD. PHYSICIAN: HÉCTOR PORTILLO APRN REASON: fall and knee pain PROCEDURE: CHEST PA & LATERAL Two-view chest dated 07/02/2021 2:54 AM Comparison: 06/20/2017 CLINICAL INDICATION: Pain after injury FINDINGS: PA and lateral views obtained. Heart and mediastinal contours are stable. There is some prominent linear markings at the perihilar regions, unchanged. No consolidation or pleural effusion. No pneumothorax. IMPRESSION: No acute radiographic abnormality. Stable findings compared to 06/20/2017. Electronically signed by: Estevan Marinelli MD (07/02/2021 2:55 AM) [facility] DICTATED and SIGNED BY: ESTEVAN MARINELLI MD DATE: 07/02/21 [id number] (KATHY PAEZ MD) Course & Med Decision Making: Course & Med Decision Making Pertinent Labs and Imaging studies reviewed. (See chart for details: 0105: sign out to Dr paez, awaiting xrays to be done, patient HR 96 per pulse ox. (HÉCTOR PORTILLO APRN) Course & Med Decision Making Signed out to hi pending x-ray films. Patient suffered a mechanical fall and was complaining of knee pain and hip pain. Plain films did not show any acute injuries. Patient will be discharged with conservative treatment (KATHY PAEZ MD) Scott Disclaimer: Scott Disclaimer: This electronic medical record was generated, in whole or in part, using a voice recognition dictation system. (HÉCTOR PORTILLO APRN) Departure Departure Impression: Primary Impression: Knee pain Additional Impressions: Hip pain Fall Disposition: 02 SHORT TERM HOSPITAL Condition: STABLE Referrals: GYPSY JAMES MD (PCP) Additional Instructions: Your x-rays and CT scans did not show any injuries to your bones. Your pain is likely due to soft tissue injuries and potentially some arthritis. For pain tylenol and ibuprofen are best used on a schedule. Please alternate between the two. -Tylenol 1000 mg every 6 hours (do not exceed 4000 mg in one day) -Ibuprofen 400 mg every 6 hours. Take with food. Do not take for more than 1 week. HÉCTOR PORTILLO APRN Jul 01, 2021 23:15 KATHY PAEZ MD Jul 02, 2021 05:05
--- NOTE | 2021-07-02 00:15 | RAD ---
CT HEAD AND C-SPINE WO dated 07/01/2021 11:25 PM. Comparison: None. Clinical Indication: Reason: fall / Spl. Instructions: / History: , HEAD AND NECK PAIN Technical factors: Contiguous 5 mm axial images of the head were obtained from the skullbase to the v ertex. No contrast was administered. In addition, 3 mm axial images of the cervical spine were acquir ed with thin cut coronal and sagittal reconstructions. One or more of the following individualized dose reduction techniques were utilized for this examinat ion: 1. Automated exposure control 2. Adjustment of the mA and/or kV according to patient size 3. Use of iterative reconstruction technique Findings head: Ventricles and sulci are within normal limits for age. No evidence of ventricular shift or mass effec t. Brain parenchyma is of normal attenuation. There is no evidence of hemorrhage or extra-axial colle ction. Visualized paranasal sinuses and mastoid air cells are clear. No acute osseous abnormality. IMPRESSION HEAD: No evidence of acute intracranial abnormality. Findings cervical spine: Images were acquired from the skull base to T3. There is straightening of the normal cervical lordosi s, otherwise sagittal alignment is anatomic. Vertebral body heights are maintained. No prevertebral s oft tissue swelling. Posterior elements are intact. No fractures are identified. Mild to moderate endplate hypertrophic changes with multilevel uncovertebral spurring and mild multil evel facet arthropathy. No apparent focal disc herniation. The bony canal and foramen are adequate. Visualized soft tissue structures are unremarkable. Limited images of lung apices are clear. Mild emp hysema. IMPRESSION CERVICAL SPINE: 1. No evidence of fracture or malalignment. 2. Mild multilevel spondylosis. Electronically signed by: Estevan Marinelli MD (07/02/2021 12:13 AM) NIKOLAI
--- NOTE | 2021-07-02 00:25 | RAD ---
CT lumbar spine without contrast dated 07/02/2021. COMPARISON: None. CLINICAL INDICATION: Pain after fall. TECHNIQUE: Contiguous axial imaging of the lumbar spine performed with thin cut coronal and sagittal reconstruct ion. One or more of the following individualized dose reduction techniques were utilized for this examinat ion: 1. Automated exposure control 2. Adjustment of the mA and/or kV according to patient size 3. Use of iterative reconstruction technique FINDINGS: Sagittal alignment is anatomic. Vertebral body heights are maintained. No displaced fracture. There i s a unilateral pars defect at L5 right with small linear defect through the spinous process and left lamina that appears well-corticated, likely remote. There is also some fragmentation along the liability analyst ior margin left facet joint at this level. No apparent focal disc herniation. There is mild broad-based bulging at L4-L5 with mild disc space na rrowing. This results in mild central stenosis with moderate bilateral foraminal stenosis. There is m oderate disc space narrowing and vacuum disc phenomenon at L5-S1 with mild broad-based bulge. Moderat e bilateral foraminal stenosis with moderate narrowing of the thecal sac. Images of the retroperitoneum show no significant abnormality. IMPRESSION: 1. No evidence of acute fracture or malalignment. 2. Unilateral pars defect at L5 on the right with small linear defect through the left lamina/spinous process that appears to be remote in age. No significant listhesis at this level. 3. Mild to moderate lower lumbar spondylosis. There is mild central stenosis at L4-L5 and L5-S1 with moderate bilateral foraminal narrowing at these levels. Electronically signed by: Estevan Marinelli MD (07/02/2021 12:22 AM) EDILMA
--- NOTE | 2021-07-02 00:27 | RAD ---
CT maxillofacial without contrast dated 07/02/2021. COMPARISON: None. CLINICAL INDICATION: Pain after fall. TECHNIQUE: Contiguous axial imaging the maxillary facial bones obtained with thin cut coronal and sagittal MIPS reconstructions. One or more of the following individualized dose reduction techniques were utilized for this examinat ion: 1. Automated exposure control 2. Adjustment of the mA and/or kV according to patient size 3. Use of iterative reconstruction technique FINDINGS: Mild mucosal thickening of the ethmoid air cells. Paranasal sinuses and mastoid air cells are otherwi se clear. Middle ears are clear. No destructive changes or periostitis. Orbital aviles and maxillary aviles are intact. No displaced facial fracture. Zygomatic arches are inta ct. Nasal bones are intact. No evidence of mandible fracture. Imaged portions of the brain parenchyma unremarkable. No significant soft tissue abnormality. IMPRESSION: 1. No evidence of displaced facial fracture. 2. Minimal mucosal thickening of the bilateral ethmoid air cells. Electronically signed by: Estevan Marinelli MD (07/02/2021 12:25 AM) EDILMA
[2021-07-02 00:51] VITALS: BP 160/72
--- NOTE | 2021-07-02 02:55 | RAD ---
Single view pelvis and two-view right hip dated 07/02/2021. COMPARISON: None. CLINICAL INDICATION: Pain after fall. FINDINGS: AP view pelvis shows normal bony alignment. No displaced fracture. Pelvic ring is intact. No acute os seous or articular abnormality. 2 views right hip show normal bony alignment. No displaced fracture. No acute osseous or articular ab normality. IMPRESSION: No acute findings. Electronically signed by: Estevan Marinelli MD (07/02/2021 2:52 AM) EDIL[facility]
--- NOTE | 2021-07-02 02:56 | RAD ---
4 view bilateral knee dated 07/02/2021. COMPARISON: None. Clinical data indication: Pain after fall. FINDINGS: 4 views of right knee show normal bony alignment. No displaced fracture. Mild tricompartmental hypert rophic change with small marginal osteophytes. There is asymmetric medial joint space narrowing. No a pparent joint effusion. There are small loose bodies at the posterior joint space. 4 views of the left knee show normal bony alignment. No displaced fracture. Moderate tricompartmental hypertrophic changes with multiple intra-articular loose bodies. No apparent joint effusion. IMPRESSION: 1. No acute radiographic abnormality. 2. Moderate bilateral tricompartmental DJD with multiple intra-articular loose bodies, left greater t hutton right. Electronically signed by: Estevan Marinelli MD (07/02/2021 2:54 AM) EDILMA
--- NOTE | 2021-07-02 02:57 | RAD ---
Two-view chest dated 07/02/2021 2:54 AM Comparison: 06/20/2017 CLINICAL INDICATION: Pain after injury FINDINGS: PA and lateral views obtained. Heart and mediastinal contours are stable. There is some prominent taylor ear markings at the perihilar regions, unchanged. No consolidation or pleural effusion. No pneumothor ax. IMPRESSION: No acute radiographic abnormality. Stable findings compared to 06/20/2017. Electronically signed by: Estevan Marinelli MD (07/02/2021 2:55 AM) EDILMA
== END | disposition home or self-care (01) ==
LOC: ER 22:28
DX: M25.561 Pain in right knee (principal); M25.562 Pain in left knee; G89.11 Acute pain due to trauma; M54.50 Low back pain, unspecified; M25.551 Pain in right hip; R07.89 Other chest pain; M54.2 Cervicalgia; R07.81 Pleurodynia; J45.909 Unspecified asthma, uncomplicated; F31.9 Bipolar disorder, unspecified; I10 Essential (primary) hypertension; F20.9 Schizophrenia, unspecified; F17.200 Nicotine dependence, unspecified, uncomplicated; W18.39XA Other fall on same level, initial encounter; Y93.01 Activity, walking, marching and hiking; Y92.89 Other specified places as the place of occurrence of the external cause; Y99.8 Other external cause status
CPT/HCPCS: 70450; 70486; 71046; 72125; 72131; 73502; 73564-50; 99284-25; 99285-25